=== PATIENT | female | born 1995 | race Caucasian/White ===

== ENCOUNTER 2019-04-13 23:35 | Emergency (ER) | payer OTHER ==
[~2019-04-13] VITALS: Ht 172.7 cm; Wt 149.7 kg
[~2019-04-13 23:35] MED LIST: AMOXICILLIN500 MG PO; BIRTH CONTROL1 EAC1 PO; CLARITIN10 MG PO; FLONASE ALLERG9.9 ML NAS; MOTRIN800 MG PO; PREDNISONE10 MG PO; PROTONIX40 MG PO; ROBITUSSIN AC 110 ML PO; TESSALON PERLE200 MG PO; Zofran4 MG PO
[2019-04-13 23:38] VITALS: BP 133/73
[2019-04-14] MEDS ORDERED: ANAPROX DS550 MG PO (00:40)
== END 2019-04-14 00:56 | disposition home or self-care (01) ==
LOC: ED 23:35
DX: S63.502A Unspecified sprain of left wrist, initial encounter (principal); W19.XXXA Unspecified fall, initial encounter; Y93.89 Activity, other specified; Y92.89 Other specified places as the place of occurrence of the external cause; Y99.8 Other external cause status

== ENCOUNTER → 2019-05-11 | Outpatient (CLI) | payer OTHER ==
[~2019-05-11] MED LIST changes: +ANAPROX DS550 MG PO
== END | disposition home or self-care (01) ==
LOC: MRI 09:00
DX: M65.842 Other synovitis and tenosynovitis, left hand (principal)

== ENCOUNTER 2019-08-28 11:31 | Emergency (ER) | payer OTHER ==
[~2019-08-28] VITALS: Ht 172.7 cm; Wt 154.2 kg
[2019-08-28 11:35] VITALS: BP 130/70
[2019-08-28 12:03] LABS: BILIRUBIN NEGATIVE (NEGATIVE); BLOOD 2+ (NEGATIVE); CLARITY SL CLOUDY (CLEAR); COLOR YELLOW (YELLOW); GLUCOSE NEGATIVE (NEGATIVE); KETONE NEGATIVE (NEGATIVE); LEUKO ESTERASE 1+ (NEGATIVE); NITRITE NEGATIVE (NEGATIVE); PH 5.5 (5.0-9.0); SPECIFIC GRAVITY 1.025 (1.005-1.030); UROBILINOGEN 0.2 E.U./dl (0.2-1.0)
[2019-08-28 12:07] LABS: BASO % 0.3 % (0.0-1.0); EOS # 0.2 10*3/uL (0.0-0.4); EOS % 1.8 % (1.0-4.0); HEMOGLOBIN 13.3 g/dl (12.0-16.0); LYMPH # 3.3 10*3/uL (1.3-4.4); LYMPH % 28.2 % (27.0-41.0); MEAN CELL VOLUME 86.9 fl (81.0-99.0); MEAN CORPUSCULAR HGB 28.2 pg (27.0-31.0); MEAN CORPUSCULAR HGB CONC 32.4 g/dl (33.0-37.0); MEAN PLATELET VOLUME 10.3 fl (9.6-12.3); MONO # 0.5 10*3/uL (0.1-1.0); MONO % 4.2 % (3.0-9.0); NEUT # 7.6 10*3/uL (2.3-7.9); NEUT % 65.2 % (47.0-73.0); PLATELET COUNT AUTOMATED 381 10*3/uL (130-400); RED BLOOD COUNT 4.72 10*6/uL (4.10-5.10); RED CELL DISTRI WIDTH 14.4 % (0-14.5); WHITE BLOOD COUNT 11.6 10*3/uL (4.8-10.8)
[2019-08-28 12:20] LABS: BACTERIA TRACE; EPITHELIAL CELLS 16-20; MUCOUS 1+
[2019-08-28 12:21] LABS: ALBUMIN 3.7 gm/dl (3.1-4.5); ALKALINE PHOSPHATASE 72 U/L (45-117); BUN 7 mg/dl (7-24); CHLORIDE 107 mmol/L (98-107); CREATININE 0.81 mg/dL (0.55-1.02); LIPASE 68 U/L (73-393); POTASSIUM 3.8 mmol/L (3.5-5.1); SGOT/AST 26 IU/L (3-35); SGPT/ALT 37 U/L (12-78); SODIUM 139 mmol/L (136-145); TOTAL PROTEIN 7.9 gm/dL (6.4-8.2)
[2019-08-28] MEDS ORDERED: CEFUROXIME AXE500 MG PO (12:37)
[2019-08-28] MEDS ORDERED: ZOFRAN4 MG PO (12:37)
== END 2019-08-28 13:10 | disposition home or self-care (01) ==
LOC: ED 11:31
PROVIDERS: Nurse Practitioner Family
DX: N39.0 Urinary tract infection, site not specified (principal); R19.7 Diarrhea, unspecified; R11.2 Nausea with vomiting, unspecified; E11.9 Type 2 diabetes mellitus without complications; Z79.899 Other long term (current) drug therapy

== ENCOUNTER 2019-11-22 16:30 | Emergency (ER) | payer SELFPAY ==
[~2019-11-22] VITALS: Ht 172.7 cm; Wt 149.7 kg
[~2019-11-22 16:30] MED LIST changes: +CEFUROXIME AXE500 MG PO; +ZOFRAN4 MG PO
[2019-11-22 16:42] VITALS: BP 126/73
[2019-11-22] MEDS ORDERED: TESSALON PERLE100 M1 PO (18:04)
[2019-11-22] MEDS ORDERED: ZITHROMAX500 MG PO (18:04)
== END 2019-11-22 18:16 | disposition home or self-care (01) ==
LOC: ED 16:30
DX: J06.9 Acute upper respiratory infection, unspecified (principal); E11.9 Type 2 diabetes mellitus without complications; F17.200 Nicotine dependence, unspecified, uncomplicated; Z79.899 Other long term (current) drug therapy; Z79.2 Long term (current) use of antibiotics

== ENCOUNTER → 2021-09-20 | Outpatient (CLI) | payer OTHER ==
[~2021-09-20] MED LIST changes: +TESSALON PERLE100 M1 PO; +ZITHROMAX500 MG PO
== END | disposition home or self-care (01) ==
LOC: COVID19 15:55
PROVIDERS: ATTEND Internal Medicine
DX: U07.1 COVID-19 (principal)